=== PATIENT | female | born 1990 | race Caucasian/White ===

== ENCOUNTER 2020-05-07 23:55 | Emergency (ER) | payer OTHER ==
[2020-05-08 00:52] LABS: BILIRUBIN NEGATIVE (NEGATIVE); BLOOD NEGATIVE Ery/uL (NEGATIVE); CLARITY CLEAR (CLEAR); COLOR YELLOW (YELLOW); GLUCOSE (U) NORMAL (NORMAL); LEUKOCYTES NEGATIVE Leu/uL (NEGATIVE); NITRITE NEGATIVE (NEGATIVE); PROTEIN NEGATIVE (NEGATIVE); SPECIFIC GRAVITY >=1.030 (1.001-1.030); UROBILINOGEN 0.2 mg/dL (0.2-1.0)
[2020-05-08 02:51] LABS: ALBUMIN 3.6 g/dL (3.4-5.0); BILIRUBIN - TOTAL 0.7 mg/dL (0.2-1.0); BUN/CREAT RATIO (CALC) 19.3 RATIO; CREATININE 0.83 mg/dL (0.51-0.95); GLOBULIN (CALCULATION) 3.3 g/dL; POTASSIUM 3.7 mmol/L (3.5-5.1); TOTAL PROTEIN 6.9 g/dL (6.4-8.2)
[2020-05-08 02:54] LABS: BASOPHIL 0.2 % (0-2); EOSINOPHIL 0.4 % (0-5); HCT 39.2 % (37.0-47.0); HGB 12.3 g/dl (12.5-16.0); LYMPHOCYTE 18.3 % (15-48); MCHC 31.4 g/dL (32.0-36.0); MCV 86.2 fL (78.0-100.0); MONOCYTE 6.2 % (0-12); MPV 11.6 fL (6.0-9.5); NEUTROPHIL 74.5 % (41-80); NRBC 0; PLT 228 K/uL (150-400); RBC 4.55 M/uL (4.20-5.40); RDW 14.7 % (11.5-14.0); WBC 11.1 K/uL (4.0-10.5)
[2020-05-08] MEDS ORDERED: METRONIDAZOLE500 MG PO (03:17)
[2020-05-08] MEDS ORDERED: CIPRO500 MG PO (03:17)
[2020-05-08] MEDS ORDERED: ONDANSETRON ODT4 MG SL (03:17)
[2020-05-08] MEDS ORDERED: ULTRAM50 MG PO (03:17)
== END 2020-05-08 03:52 | disposition home or self-care (01) ==
LOC: FER 23:55
PROVIDERS: Emergency Medicine Emergency Medical Services
DX: K57.32 Diverticulitis of large intestine without perforation or abscess without bleeding (principal); M54.9 Dorsalgia, unspecified; J45.909 Unspecified asthma, uncomplicated; Z87.442 Personal history of urinary calculi; Z87.440 Personal history of urinary (tract) infections; Z90.49 Acquired absence of other specified parts of digestive tract; Z88.0 Allergy status to penicillin; Z88.5 Allergy status to narcotic agent; Z88.6 Allergy status to analgesic agent; Z91.040 Latex allergy status
CPT/HCPCS: 36415; 80053; 81003; 85025; J1885

== ENCOUNTER 2020-08-15 21:53 | Emergency (ER) | payer OTHER ==
[~2020-08-15 21:53] MED LIST: CIPRO500 MG PO; METRONIDAZOLE500 MG PO; ONDANSETRON ODT4 MG SL; ULTRAM50 MG PO
== END 2020-08-15 23:20 | disposition home or self-care (01) ==
LOC: FER 21:53
DX: J45.901 Unspecified asthma with (acute) exacerbation (principal); Z88.0 Allergy status to penicillin; Z91.040 Latex allergy status; Z79.899 Other long term (current) drug therapy
CPT/HCPCS: 71046